=== PATIENT | female | born 1980 | race Hispanic/Latino ===

== ENCOUNTER → 2022-06-26 10:40 | Outpatient (CLI) | payer OTHER, SELFPAY ==
--- NOTE | 2022-06-26 | DI.NM.S_ITS ---
PROCEDURE: NM BONE 3 PHASE RADIOPHARMACEUTICAL: 21.5 mCi Tc-99m MDP IV. INDICATIONS: Complex regional pain syndrome I of upper limb TECHNIQUE: Multiple bone scintigrams were obtained after intravenous injection of Tc-99m MDP, including flow, blood pool, and delayed images centered to the region of interest. COMPARISON: [facility], CR, XR WRIST 3+ VIEWS RIGHT, 05/01/2017, 9:10. FINDINGS: On flow images, relatively symmetric uptake is seen bilaterally. There is some pooling of radiotracer in the periarticular regions of the wrists. On blood pool images, slightly more uptake is seen on the left. Radiotracer uptake is more pronounced in the periarticular regions. On delayed images, uptake is seen in the bilateral shoulders and elbows, as well as focal uptake in the periarticular regions bilaterally in the wrists and hands, as well as the ulnar shaft. IMPRESSION: Three-phase positive bone scan, with slightly increased involvement on the left side. Distribution, particularly in the periarticular regions of the wrists and hands, favor CRPS. Uptake also seen in the forearm bones, particularly the ulna bilaterally. This is more indeterminate and may represent prior postsurgical changes. Correlation with surgical history and anatomic imaging (radiographs) could be helpful. Uptake around the shoulders and elbows bilaterally on delayed images may be additional manifestations of CRPS versus degenerative changes. Dictated by: Pierre Reynaga M.D. on 06/26/2022 at 16:57 Approved by: Pierre Reynaga M.D. on 06/26/2022 at 17:03
== END ==
PROVIDERS: Referring Provider Physical Medicine & Rehabilitation; Visit Provider Physical Medicine & Rehabilitation
DX: G90.513 Complex regional pain syndrome I of upper limb, bilateral (principal)
CPT/HCPCS: 78315; A9503